=== PATIENT | male | born 1990 | race Hispanic/Latino ===

== ENCOUNTER 2025-04-27 12:07 | Emergency (ER) | payer SELFPAY ==
[~2025-04-27] VITALS: Ht 175.3 cm; Wt 72.6 kg
[2025-04-27] MEDS: KETOROLAC TROMETHAMINE 30 MG/ML VIAL IM STA (14:19)
[2025-04-27] MEDS ORDERED: METHOCARBAMOL500 MG PO (14:25)
[2025-04-27 14:32] VITALS: PULSE 70; RESP 18; TEMP 98.3; O2SAT 99
== END 2025-04-27 14:37 | disposition home or self-care (01) ==
LOC: ER 12:48
DX: R51.9 Headache, unspecified (principal); S00.83XA Contusion of other part of head, initial encounter; M54.2 Cervicalgia; M25.512 Pain in left shoulder; G89.29 Other chronic pain; V43.62XA Car passenger injured in collision with other type car in traffic accident, initial encounter; Y92.488 Other paved roadways as the place of occurrence of the external cause
CPT/HCPCS: 70450; 72125; 73030; 99284; J1885